=== PATIENT | female | born 1935 | race Caucasian/White ===

== ENCOUNTER 2019-06-20 08:23 | Outpatient (CLI) | payer MEDICARE, SELFPAY ==
--- NOTE | ~2019-06-20 | CT_ITS ---
EXAMINATION: CT abdomen pelvis wo/w con EXAM DATE: 06/20/2019 09:03 INDICATION: Renal mass. TECHNIQUE: Spiral CT of the abdomen without contrast followed by both abdomen and pelvis with 100 cc intravenous Omnipaque 350. Axial, coronal and sagittal images were reviewed. The dose-length produc t (DLP) for this examination was 690.26 mGy-cm. The exposure was tailored according to patient size (auto mA exposure control), and iterative reconstruction (ASIR) was used as additional dose reduction technique. 06/19/2018 FINDINGS: The liver, spleen, adrenal glands and pancreas are unremarkable. Gallbladder is unremarkab le. No biliary obstruction. Again there is predominantly fatty density right renal region along the inferior pole medially, measuring 2.9 x 1.8 cm, size and appearance is unchanged. Reportedly patient has history of ablation to mass at this location. Appearance is stable. No other renal lesions. The u terus is unremarkable. The bladder is unremarkable. There is no retroperitoneal or pelvic lymphade nopathy. There is mild to moderate scattered arteriosclerotic disease. Possible identification of an unremarkable appendix. No pericecal inflammation. There is mild to mode rate scattered colonic diverticulosis. There is no adjacent inflammatory change to suggest diverticu litis. Small umbilical fat-containing hernia. There is small sliding gastroesophageal hiatal hernia . There is expected amount of colonic stool. No free intraperitoneal gas. The heart is normal in size. There are no pericardial or pleural effusions. The lung bases are unremarkable. There are n o osteoblastic or osteolytic lesions identified. IMPRESSION: 1. Stable post ablative changes to right kidney inferior pole. 2. Small gastroesophageal hiatal hernia. 3. Mild to moderate scattered colonic diverticulosis. Reviewed, dictated and finalized at location A. 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
--- NOTE | ~2019-06-20 | XR_ITS ---
EXAMINATION: XR chest 2V EXAM DATE: 06/20/2019 08:39 INDICATION: Renal mass. TECHNIQUE: Frontal and lateral projections of the chest obtained and reviewed. Comparison is made to prior examination from 06/19/2018. FINDINGS: The lungs are clear. There are no pleural effusions. The cardiomediastinal silhouette is within normal limits. There is no pneumothorax suspected. The bones and soft tissues are unremarkab le. There is aortic arterial sclerosis. IMPRESSION: Unremarkable chest x-ray exam. Reviewed, dictated and finalized at location A. 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
[2019-06-20 08:55] LABS: Blood Urea Nitrogen 19 mg/dL (8-26); Estimated Glomerular Filt Rate 60
== END 2019-06-20 08:24 | disposition home or self-care (01) ==
PROVIDERS: PCP Family Medicine Adolescent Medicine; Visit Provider Urology
DX: N28.89 Other specified disorders of kidney and ureter (principal); K44.9 Diaphragmatic hernia without obstruction or gangrene; K57.30 Diverticulosis of large intestine without perforation or abscess without bleeding
CPT/HCPCS: 71046; 74178; Q9967

== ENCOUNTER 2020-04-16 06:54 | Outpatient (NON) | payer MEDICARE, SELFPAY ==
[2020-04-16 22:31] LABS: SARS-CoV-2 RNA PCR Negative
== END 2020-04-16 06:55 ==
PROVIDERS: PCP Family Medicine Adolescent Medicine; Visit Provider Family Medicine Adolescent Medicine
DX: Z20.828 Contact with and (suspected) exposure to other viral communicable diseases (principal); R05 Cough
CPT/HCPCS: 87635; C9803; U0003

== ENCOUNTER 2020-08-13 12:23 | Emergency (ER) | payer MEDICARE, SELFPAY ==
[2020-08-13] VITALS (11 sets, daily range): BP systolic 130–166; BP diastolic 54–91; PULSE 62–81; RESP 16–20; TEMP 36.6; O2SAT 96–100
--- NOTE | ~2020-08-13 | CT_ITS ---
EXAMINATION: CT ankle RT wo con DATE: 08/13/2020 14:03 INDICATION: Distal right tibia fracture. TECHNIQUE: Computed tomography (CT) of the right ankle was performed without intravenous contrast. Au tomated exposure control and iterative reconstruction technique were employed. The dose-length produc t was 263.49 mGy-cm. COMPARISON: Right ankle radiographs 08/13/2020 FINDINGS: There is a comminuted, predominantly oblique fracture of distal fibula proximal to the leve l of the tibial plafond. The main distal fracture fragment demonstrates 5 mm posterior displacement. There is a comminuted fracture of distal tibia with involvement of the medial and posterior malleoli and tibial plafond and attachment site of anterior tibiofibular ligament. There is up to 3 mm step-of f of the articular surface of the tibial plafond. There is mild osteoarthritis of the ankle joint and some of the midfoot joints. There are enthesophytes at the posterior and plantar aspects of calcanea l tuberosity. IMPRESSION: 1. Comminuted fracture of distal tibia. 2. Comminuted fracture of distal fibula. 3. Polyarticular osteoarthritis. Reviewed, dictated and finalized at location A.
--- NOTE | ~2020-08-13 | XR_ITS ---
EXAMINATION: XR ankle RT min 3V EXAM DATE: 08/13/2020 13:04 INDICATION: Fracture/dislocation, post reduction, splinting. TECHNIQUE: Right ankle frontal, lateral and oblique projections obtained and reviewed. There is no p rior study for comparison. FINDINGS: Right fibula as an acute closed posttraumatic fracture through the distal metaphysis into t he superolateral aspect of the ankle mortise. There is about 7 mm posterior displacement. Also commin uted right tibial plafond fracture with a sizable posterior malleolar fragment, probably about 5 mm g ap. The mortise relationship does appear maintained. There is a splint. IMPRESSION: Status post right ankle fibular, tibial fracture reduction. Reviewed, dictated and finalized at location A.
[2020-08-13] MEDS: ONDANSETRON INJ 4 MG/2 ML VIAL IV PUSH (12:46)
[2020-08-13] MEDS: HYDROmorphone HCL INJ (*CRX) 1 MG/ML SYR IV PUSH (12:46)
[2020-08-13] MEDS: SODIUM CHLORIDE 0.9% IV 500 ML 999 ML IV CONT (12:46)
--- NOTE | 2020-08-13 13:00 | PC.NURSE ---
Radiology at bedside
--- NOTE | 2020-08-13 13:05 | ED.GENADULT ---
HPI - General Adult General Chief complaint: Extremity Injury, Lower Stated complaint: FALL/R ANKLE INJURY Source: patient and EMS Mode of arrival: EMS Limitations: no limitations History of Present Illness HPI narrative: Patient is an 84-year-old female who presents to emergency department for evaluation right ankle injury that occurred while mis-stepping while wearing sandals patient presents per EMS with obvious ankle deformity patient notes moderate to severe pain patient notes that her toes do feel cool. Patient denies other injuries or complaints was given 25 micro grams of fentanyl prior to arrival. Patient on arrival is in no obvious distress Related Data Allergies Allergy/AdvReac Type Severity Reaction Status Date / Time No Known Allergies Allergy Verified 08/13/20 12:35 Review of Systems Review of Systems: All systems reviewed & are unremarkable except as noted in HPI and below PMFSH Past Medical History Medical History (Updated 08/13/20 @ 15:56 by Bola Vizcaino PA-C) Hypertension Social History Social History (Updated 08/13/20 @ 13:33 by Bola Vizcaino PA-C) Smoking status: Never smoker Exam Narrative: Exam Narrative: GENERAL: Well-appearing, well-nourished, and in no acute distress. HEAD: Normocephalic, atraumatic. EYES: PERRLA and EOMI. ENT: Nares clear, no rhinorrhea or epistaxis. Mucous membranes moist. NECK: Supple. No adenopathy or masses. CHEST: Clear to auscultation. No respiratory distress. No wheezes rales or rhonchi HEART: Regular rate and rhythm. No murmur heard. Normal peripheral pulses. EXTREMITIES: Patient with deformity dislocation right ankle with tenderness. Remainder of extremities to include the spine nontender no deformity SKIN: Warm, dry, no rash. NEURO: No focal deficits. Alert and oriented x3. Cranial nerves II through XII grossly intact. Neurovascularly intact PSYCH: Normal mood and affect. Course Consultations Consultation #1: Discussed case with the orthopedic surgeon who would like the ankle to be scanned and then to have rereturn phone call Spoke with Dr. Summers Date: 08/13/20 Time: 13:33 Consultation #2: Discussed case with orthopedist Dr. Summers who recommends having the patient set up with [facility] or [facility] orthopedics given the posterior pilon fracture Consultation #3: Discussed case with the on-call exchange at [facility] who has provided follow-up information for the patient she is to bring a copy of her imaging as well Vital Signs Vital signs: Vital Signs Temperature 97.9 F 08/13/20 12:25 Pulse Rate 75 08/13/20 12:25 Respiratory Rate 18 08/13/20 12:25 Blood Pressure 166/71 H 08/13/20 12:25 Pulse Oximetry 98 08/13/20 12:25 Temperature 97.9 F 08/13/20 12:25 Pulse Rate 67 08/13/20 15:15 Respiratory Rate 16 08/13/20 15:15 Blood Pressure 140/54 L 08/13/20 15:15 Pulse Oximetry 97 08/13/20 15:15 Procedures Orthopedic Fracture Reduction Fracture #1: Fracture Reduction date: 08/13/20 Fracture Reduction time: 13:17 Side: right Analgesia: other (iv narcotic) Pre-Procedure Neuro Vascular Exam: normal Technique: direct manipulation Post Reduction X-rays Demonstrate: anatomical reduction Post-reduction neuro exam: intact Post-reduction vascular exam: intact Splint Applied: Yes Patient Tolerated Procedure: well Orthopedic Splinting/Casting Injury #1: Splinting/Casting Date: 08/13/20 Splinting/Casting Time: 13:18 Side: right Lower Extremity Injury Location: ankle Splint: prefabricated OCL: stirrup Pre-Procedure Neuro Vascular Exam: normal Post-Procedure Neuro Vascular Exam: normal Medical Decision Making MDM Narrative Medical decision making narrative: Patients injury or pain is consistent with musculoskeletal etiology. No signs of neurological or vascular compromise on exam. Compartments and tisues are soft wi
--- NOTE | 2020-08-13 14:02 | PC.NURSE ---
Pt returned from CT
== END 2020-08-13 16:54 | disposition home or self-care (01) ==
PROVIDERS: Emergency Provider Emergency Medicine; PCP Family Medicine Adolescent Medicine
DX: S82.831A Other fracture of upper and lower end of right fibula, initial encounter for closed fracture (principal); S82.871A Displaced pilon fracture of right tibia, initial encounter for closed fracture; I10 Essential (primary) hypertension; X50.9XXA Other and unspecified overexertion or strenuous movements or postures, initial encounter
CPT/HCPCS: 27788; 27825; 73610; 73700; 96374; 96375; 99285; J1170; J2405; J7040

== ENCOUNTER 2020-09-10 13:02 | Emergency (ER) | payer MEDICARE, SELFPAY ==
[2020-09-10] VITALS (8 sets, daily range): BP systolic 141–153; BP diastolic 65–76; PULSE 69–78; RESP 16–18; TEMP 36.1–36.9; O2SAT 96–99
--- NOTE | ~2020-09-10 | CT_ITS ---
EXAMINATION: CT brain wo con DATE: 09/10/2020 13:34 INDICATION: Left-sided head injury post fall TECHNIQUE: Computed tomography (CT) of the head was performed without intravenous contrast. Sagittal and coronal reconstructions were performed. The mA was adjusted according to patient size. Iterative reconstruction technique was employed. The dose-length product was 605.33 mGy-cm. COMPARISON: head CT dated 04/20/14 FINDINGS: No fracture. No acute intracranial hemorrhage, acute infarction or abnormal extra axial fluid collect ion. Small old lacunar infarct at the right cerebellum. There is mild scattered white matter hypoatte nuation consistent with chronic small vessel ischemic disease. Ventricles are normal and symmetric. N o mass/mass effect. Changes of bilateral intraocular lens replacement. The orbits and mastoid air zainab ls are normal. Small amount of dependently layering fluid in the bilateral sphenoid sinuses. Intracra nial calcified cerebral atherosclerosis is noted. IMPRESSION: 1. No fracture or acute intracranial process. 2. 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 3. Mild scattered white matter hypoattenuation consistent with chronic small vessel ischemic disease. Reviewed, dictated and finalized at location A. IMPRESSION: 1. No fracture or acute intracranial process. 2. 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 3. Mild scattered white matter hypoattenuation consistent with chronic small ve ssel ischemic disease.
--- NOTE | ~2020-09-10 | CT_ITS ---
EXAMINATION: CT lumbar spine wo con DATE: 09/10/2020 13:34 INDICATION: Low back pain. Fall. TECHNIQUE: Computed tomography (CT) of the lumbar spine was performed without intravenous contrast. A utomated exposure control and iterative reconstruction technique were employed. The dose-length produ ct was 768.39 mGy-cm. COMPARISON: CT abdomen and pelvis 06/20/2019 FINDINGS: There are changes of ablation of right kidney lower pole. There is 3 degrees levocurvature of thoracolumbar spine. There is a burst fracture of superior endplate of L1 with less than 1/5 loss of height and retropulsion of bone 2 mm into central spinal canal. Intervertebral disc heights are no rmal. The following disc levels are specifically discussed: L1-L2: The disc is bulging. There is mild bilateral facet joint osteoarthritis. There is no neural fo raminal stenosis. There is mild central canal stenosis. L2-L3: The disc is bulging. There is mild bilateral facet joint osteoarthritis. There is mild bilater al neural foraminal stenosis. There is mild central canal stenosis. L3-L4: The disc is bulging. There is moderate bilateral facet joint osteoarthritis. There is mild kassandra ateral neural foraminal stenosis. There is no central canal stenosis. L4-L5: The disc is bulging. There is moderate bilateral facet joint osteoarthritis. There is mild kassandra ateral neural foraminal stenosis. There is mild central canal stenosis. L5-S1: The disc is bulging. There is moderate and severe left facet joint osteoarthritis. There is mi ld bilateral neural foraminal stenosis. There is mild central canal stenosis. IMPRESSION: 1. Acute burst fracture of L1 superior endplate. 2. Mild lumbar spondylosis. Reviewed, dictated and finalized at location B.
--- NOTE | 2020-09-10 13:16 | ED.FALL ---
HPI - Fall General Chief Complaint: Fall Stated Complaint: fall/hi Time Seen by Provider: 09/10/20 13:08 History of Present Illness HPI Narrative: 84 yo female presents form home for a fall. She reportedly had a fall overnight last night. She had recent surgery on her right leg and [place] and still has a splint in place. She was trying to transfer last night so she could use the restroom and she tripped. She has pain in the left lower back. She also struck her head on the door frame. No LOC, confusion, weakness, numbness, wound. Related Data Home Medications Medication Instructions Recorded Confirmed amlodipine 09/10/20 09/10/20 atorvastatin 09/10/20 clobetasol TOPICAL 09/10/20 hydrochlorothiazide 09/10/20 latanoprost drp 09/10/20 lisinopril 09/10/20 metoprolol succinate PO 09/10/20 Allergies Allergy/AdvReac Type Severity Reaction Status Date / Time No Known Allergies Allergy Verified 09/10/20 16:06 Review of Systems Review of Systems: All systems reviewed & are unremarkable except as noted in HPI and below Constitutional: Constitutional: Denies chills, Denies fever(s) and Denies weakness Eyes: Eyes: Reports no additional eye complaints Cardiovascular: Cardiovascular: Denies chest pain Respiratory: Respiratory: Denies dyspnea Gastrointestinal: Gastrointestinal: Denies abdominal pain and Denies nausea Genitourinary: Genitourinary: Denies hematuria and Denies dysuria Musculoskeletal: Musculoskeletal: Reports back pain Integumentary/Breasts: Skin/Breast: Reports system reviewed and no additional complaints, except as docu Neurologic: Denies dizziness, Denies numbness and Denies weakness Hematologic/Lymphatic: Hematologic/Lymphatic: Denies easy bleeding and Denies easy bruising PMFSH Past Medical History Medical History Hypertension Social History Social History Smoking status: Never smoker Exam Const: General: healthy appearing, no acute distress and alert Nutritional Appearance: well nourished Orientation/consciousness: patient oriented x3 HENMT: Head: normal to inspection, no contusions and no lacerations Ears: external ears normal Face and sinus: normal facial exam Eyes: Conjunctivae: conjunctivae normal Pupils: Equal, round and reactive pupils present EOM: EOMs intact bilaterally Resp: Effort & Inspection: normal respiratory effort Auscultation: clear to auscultation bilaterally Cardio: Rate: regular rate Rhythm: regular rhythm GI: Inspection: non-distended GI Palp: Yes Soft to palpation and No Tenderness to palpation present (GI) Back/Spine/Pelvis: Other: tender over left SI joint. No midline tenderness Skin: General skin exam: normal color Rashes: no rashes Neuro: General: patient oriented x3, moves all extremities, no focal motor deficits and CN's II-XI intact bilaterally Speech: normal speech Other: Normal sensation and strength in the legs Extrem: General: normal to inspection Course Vital Signs Vital signs: Vital Signs Pulse Oximetry 98 09/10/20 13:12 Temperature 36.8 C 09/10/20 20:45 Pulse Rate 70 09/10/20 23:54 Respiratory Rate 18 09/10/20 23:54 Blood Pressure 151/70 H 09/10/20 23:54 Pulse Oximetry 98 09/10/20 23:54 MDM - Fall MDM Narrative Medical decision making narrative: L1 superior end plate burst fracture. Discussed with NSGY at [facility]. they will accept her as a direct admit. Imaging Data Radiologist's impression: ITS Impressions Head CT 09/10/20 13:44 IMPRESSION: 1. No fracture or acute intracranial process. 2. 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 3. Mild scattered white matter hypoattenuation consistent with chronic small vessel ischemic disease. Lumbar Spine CT 09/10/20 13:48 IMPRESSION: 1. Acute burst fracture of L1 superior endplate. 2. Mild lumbar spondylosis.
[2020-09-10] MEDS: MORPHINE SULFATE (*CRX) 2 MG/ML INJ IV PUSH (17:04)
--- NOTE | 2020-09-10 19:08 | PC.NURSE ---
called for bed at [facility] on waiting list, [phone]
--- NOTE | 2020-09-10 21:32 | PC.NURSE ---
Pt going to room [address] bed 2 at [facility]. Report called to Ela Flowers RN.
--- NOTE | 2020-09-10 23:10 | PC.NURSE ---
called [facility] for ETA update. ETA 30 minutes.
== END 2020-09-10 23:56 | disposition short-term general hospital (02) ==
PROVIDERS: Emergency Provider Emergency Medicine; PCP Family Medicine Adolescent Medicine
DX: S32.011A Stable burst fracture of first lumbar vertebra, initial encounter for closed fracture (principal); S09.90XA Unspecified injury of head, initial encounter; M47.816 Spondylosis without myelopathy or radiculopathy, lumbar region; I10 Essential (primary) hypertension; W01.0XXA Fall on same level from slipping, tripping and stumbling without subsequent striking against object, initial encounter
CPT/HCPCS: 70450; 72131; 96374; 99285; J2270

== ENCOUNTER → 2020-11-21 11:27 | Outpatient (CLI) | payer MEDICARE, SELFPAY ==
--- NOTE | ~2020-11-21 | XR_ITS ---
XR thoracolumbar DATE: 11/21/2020 12:04 INDICATION: Burst fracture first lumbar vertebra TECHNIQUE: AP and lateral views of thoracolumbar area COMPARISON: 09/10/2020 CT lumbar spine FINDINGS: Burst fracture deformity of L1 with anterior wedging and increased loss of height since 08/30 (up to approximately one third loss of height compared to T12). Osteopenia. Moderate degenerative disc disease at L1-2, L2-3, L3-4. Extensive calcification of the thoracic and abdominal aorta without evidence of aneurysm. IMPRESSION: Increased loss of height at burst fracture deformity of L1 since 01/11/2021 Osteopenia Reviewed, dictated and finalized at location A. IMPRESSION: Increased loss of height at burst fracture deformity of L1 since 04/2021 Osteopenia
== END ==
PROVIDERS: PCP Nurse Practitioner; Visit Provider Nurse Practitioner Acute Care
DX: S32.011D Stable burst fracture of first lumbar vertebra, subsequent encounter for fracture with routine healing (principal); X58.XXXD Exposure to other specified factors, subsequent encounter; M85.88 Other specified disorders of bone density and structure, other site
CPT/HCPCS: 72080

== ENCOUNTER 2021-04-23 12:56 | Outpatient (CLI) | payer MEDICARE, SELFPAY ==
--- NOTE | ~2021-04-23 | XR_ITS ---
XR chest 2V 04/23/2021 13:35 Indication: Community acquired pneumonia Procedure: PA and lateral views of the chest Comparison: Comparison to multiple prior studies sequentially, with oldest reviewed study dated 11/24. Findings: Heart size normal. No focal air space disease, pulmonary edema, pleural effusion or suspect ed pneumothorax. There is atherosclerosis of the aorta. Impression: 1: No acute cardiopulmonary disease. Reviewed, dictated and finalized at location A. 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
[2021-04-23 14:21] LABS: Alanine Aminotransferase 28 U/L (4-35); Albumin Level 4.4 g/dL (3.5-5.1); Alkaline Phosphatase 151 U/L (38-126); Anion Gap 12 mmol/L (8-16); Aspartate Amino Transferase 30 U/L (14-36); Bilirubin,Total 0.4 mg/dL (0.2-1.3); Blood Urea Nitrogen 14 mg/dL (7-17); Calcium 9.5 mg/dL (8.4-10.2); Carbon Dioxide 27 mmol/L (22-30); Chloride 98 mmol/L (98-107); Estimated Glomerular Filt Rate > 60; Glucose 108 mg/dL (65-110); Potassium 4.2 mmol/L (3.4-5.0); Sodium 137 mmol/L (137-145)
[2021-04-23 15:19] LABS: Thyroid Stimulating Hormone Reflex 0.899 uIU/mL (0.465-4.68)
== END 2021-04-23 12:57 | disposition home or self-care (01) ==
PROVIDERS: PCP Nurse Practitioner; Visit Provider Nurse Practitioner
DX: J18.9 Pneumonia, unspecified organism (principal); I10 Essential (primary) hypertension
CPT/HCPCS: 36415; 71046; 80053; 82088; 84443

== ENCOUNTER 2021-04-27 10:19 | Outpatient (CLI) | payer MEDICARE, SELFPAY ==
[2021-05-08 13:32] LABS: PRA 0.21 ng/mL/h (0.25-5.82)
== END 2021-04-27 10:20 | disposition home or self-care (01) ==
PROVIDERS: PCP Nurse Practitioner; Visit Provider Nurse Practitioner
DX: I10 Essential (primary) hypertension (principal)
CPT/HCPCS: 36415; 82088; 84244

== ENCOUNTER 2023-08-09 14:21 | Outpatient (CLI) | payer MEDICARE, SELFPAY ==
--- NOTE | ~2023-08-09 | US_ITS ---
EXAMINATION: US thyroid DATE: 08/09/2023 14:41 INDICATION: Thyroid nodules TECHNIQUE: Multiple ultrasound images of the thyroid were obtained. COMPARISON: None. FINDINGS: The right thyroid lobe measures 4.4 x 1.4 x 1.6 cm. The left thyroid lobe measures 3.6 x 1.2 x 1.9 c m. There are multiple thyroid nodules. The most significant include a anechoic cystic TI RADS 1 nodu les in the left and right thyroid lobes. 1.0 cm solid wider than tall nodule in the superior and mid right thyroid lobe which are hypoechoic with ill-defined margins and without internal echogenic foci (TI-RADS 5, highly suspicious , FNA if >=1.0 cm, annual followup is >0.5 cm). 1.1 cm nodule inferior right thyroid lobe. There is an additional 1.1 cm nodule in the mid right thyroid with similar imagin g features aside from absence of echogenic foci (TI-RADS 4, moderately suspicious , FNA if >=1.5 cm, annual followup is >=1 cm). 1.2 cm nodule at the inferior right thyroid is also solid, hypoechoic, wi jose maria than tall with ill-defined margins and with central coarse shadowing calcification also TI RADS 4 . There are couple subcentimeter anechoic cystic TI RADS 4 nodules in both the left and right thyroid lobes. IMPRESSION: 1. Multinodular goiter. Recommend ultrasound-guided biopsy of one or both of the 1 cm TI RADS 5 nodul es in the right thyroid lobe. Reviewed, dictated and finalized at location B. IMPRESSION: 1. Multinodular goiter. Recommend ultrasound-guided biopsy of one or both of th e 1 cm TI RADS 5 nodules in the right thyroid lobe.
== END 2023-08-09 14:22 ==
PROVIDERS: PCP Nurse Practitioner; Visit Provider Nurse Practitioner
DX: E04.2 Nontoxic multinodular goiter (principal)
CPT/HCPCS: 76536

== ENCOUNTER 2023-10-10 11:33 | Outpatient (CLI) | payer MEDICARE, SELFPAY ==
--- NOTE | ~2023-10-10 | XR_ITS ---
Clinical Indication: Cough PA and lateral views of the chest: Comparison: 04/23/2021 Findings: The lungs are clear, without evidence of focal consolidation or pleural effusion. Cardiome diastinal silhouette is within normal limits. L1 compression fracture noted. Impression: Clear lungs. Stable L1 compression fracture. Reviewed, dictated and finalized at location . Impression: Clear lungs. Stable L1 compression fracture.
== END 2023-10-10 11:34 ==
PROVIDERS: PCP Nurse Practitioner; Visit Provider Nurse Practitioner
DX: R05.1 Acute cough (principal); R06.02 Shortness of breath
CPT/HCPCS: 71046

== ENCOUNTER 2024-02-28 13:38 | Outpatient (CLI) | payer MEDICARE, SELFPAY ==
--- NOTE | ~2024-02-28 | CT_ITS ---
CT abdomen pelvis wo/w con Ordering provider: Franklin Aceves MD History: 88 years Female with . Renal Mass . Comparison: June 20, 2019 Technique: CT abdomen and pelvis with IV and without oral contrast. Automated exposure control and it erative reconstruction technique were employed. The dose-length product was 776.05 mGy-cm. 100 mL Omn ipaque 350 was given IV. Findings: VISUALIZED LOWER CHEST: Dependent atelectatic changes. UPPER ABDOMINAL ORGANS: Liver: Normal. Gallbladder: Normal. Spleen: Normal. Stomach/duodenum: Sliding hiatus hernia. Pancreas: Atrophic. Adrenals: Normal. Kidneys: Fat-containing mass is seen in the right kidney lower pole which measures 2.4x1.3 cm and lynette ear unchanged from previous examination. Tiny cysts are seen in the right kidney. PELVIC ORGANS: The bladder shows thickened wall with surrounding fat stranding suggestive of cystitis . Clinical evaluation and if clinically warranted cystoscopy is advised. Uterus: Normal. BOWEL AND MESENTERY: Colon: No evidence of diverticulitis. Normal appendix. Small Bowel: Normal. No obstruction. Peritoneum/mesentery: No free air or free fluid. No mesenteric lymphadenopathy. RETROPERITONEUM: Mild atheromatous disease of the abdominal aorta. Narrowing of the origin of the ce liac artery. No retroperitoneal lymphadenopathy. MUSCULOSKELETAL: Superficial soft tissues: Fat containing umbilical hernia. The superficial soft tissues are normal. Bones: Compression fracture of L1 with loss of height of about 50%. This is most likely acute. MRI ev aluation advised. Age appropriate degenerative changes of the spine. Bilateral sacroiliitis. IMPRESSION: 1. Sliding hiatus hernia. 2. Soft tissue density with fat content is seen in the right kidney lower pole unchanged from previo us examination. 3. Irregularity of the outline of the urinary bladder with surrounding fat stranding suggestive of c ystitis. Further evaluation advised. 4. Compression fracture of L1 most likely acute. MRI evaluation advised. Reviewed, dictated and finalized at location A. IMPRESSION: 1. Sliding hiatus hernia. 2. Soft tissue density with fat content is seen in the right kidney lower pole unchanged from previous examination. 3. Irregularity of the outline of the urinary bladder with surrounding fat str anding suggestive of cystitis. Further evaluation advised. 4. Compression fracture of L1 most likely acute. MRI evaluation advised.
[2024-02-28 13:58] LABS: Estimated Glomerular Filt Rate 59
== END 2024-02-28 13:39 | disposition home or self-care (01) ==
PROVIDERS: PCP Nurse Practitioner; Visit Provider Urology
DX: N28.89 Other specified disorders of kidney and ureter (principal); K44.9 Diaphragmatic hernia without obstruction or gangrene; S32.010A Wedge compression fracture of first lumbar vertebra, initial encounter for closed fracture; X58.XXXA Exposure to other specified factors, initial encounter
CPT/HCPCS: 74178; Q9967